=== PATIENT | female | born 1945 | race Caucasian/White ===

== ENCOUNTER → 2018-05-03 12:59 | Outpatient (CLI) | payer OTHER, SELFPAY ==
[2018-05-03 13:17] LABS: Add Manual Diff / Slide Review NO; Eosinophils Percent Auto 1.9 % (2-4); Hematocrit 42.5 % (36-46); Hemoglobin 14.1 g/dL (12.0-16.0); Lymphocytes Percent Auto 19.4 % (25-40); Mean Corpuscular HGB Conc 33.2 % (30-36); Mean Corpuscular Hemoglobin 30.9 PG (26-34); Mean Corpuscular Volume 93.1 fL (80-100); Monocytes Percent Auto 9.1 % (3-14); Neutrophils Absolute Auto 4100 /uL (3000-5900); Neutrophils Percent Auto 68.6 % (50-75); Platelet Count 97 X10^3/uL (150-400); Red Blood Cell Count 4.57 X10^6/uL (4.0-5.2)
[2018-05-03 13:25] LABS: Alanine Aminotransferase 26 IU/L (9-52); Albumin Globulin Ratio 1.4 (1.0-2.8); Alkaline Phosphatase 73 U/L (38-126); Aspartate Aminotransferase 22 IU/L (14-36); Blood Urea Nitrogen 15 mg/dL (7-17); Calcium 9.8 mg/dL (8.4-10.2); Carbon Dioxide 28 mmol/L (22-32); Chloride 103 mmol/L (98-107); Estimated Glomerular Filt Rate > 60.0 mL/min (>60); Globulin 2.9 g/dL (1.7-4.1); Glucose 114 mg/dL (80-110); HEMOLYSIS < 15 (0-50); Sodium 140 mmol/L (137-145); Total Protein 6.9 g/dL (6.3-8.2)
--- NOTE | 2018-05-03 14:14 | PC.NURSE ---
labs stable, appt on 05/10 with PRINCIPAL RESEARCH ECONOMIST
== END ==
PROVIDERS: Family Provider Family Medicine; PCP Family Medicine; Visit Provider Internal Medicine Hematology & Oncology
DX: D69.3 Immune thrombocytopenic purpura (principal)
CPT/HCPCS: 36415; 80053; 85025

== ENCOUNTER → 2018-05-17 12:50 | Outpatient (CLI) | payer OTHER, SELFPAY | PROVIDERS: PCP Family Medicine; Visit Provider Nurse Practitioner Gerontology | DX: C50.911 Malignant neoplasm of unspecified site of right female breast (principal); M85.852 Other specified disorders of bone density and structure, left thigh; Z78.0 Asymptomatic menopausal state; E07.9 Disorder of thyroid, unspecified | CPT/HCPCS: 77080 ==

== ENCOUNTER 2018-05-19 11:30 | Oncology outpatient (ONC) | payer OTHER, SELFPAY ==
--- NOTE | 2018-05-12 11:04 | ONC.APRN.PN ---
PN -Subjective Interval history: The patient is a 72 year old Female who is being seen in the clinic 05/12/2018. 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 Barbour in [place], [place]. Patient presents today for a 6 month interval follow-up. Clinically she is done well since I saw her last. No illnesses, infections, hospital stays. No unexplained bleeding or bruising. Over well reports she is doing ?great?. She traveled quite a bit earlier in the year. She has a trip to visit family in [place] spring 2018. Activity tolerance is stable. Appetite is stable as well, weight is stable. No new pain. No new lumps or bumps. Continuation continues to have chronic lower back pain which is being managed through physical therapy. MRI of the lumbar spine on December [address] Macario showing diffuse degenerative changes no evidence of malignancy. The patient is scheduled for her annual bilateral screening mammogram tomorrow October 10. Patient also recently received notice in the mail she is due for her colonoscopy, she reports she is going to schedule. She states her most recent bone density screen was ?a long time ago?. She does not routinely take calcium and vitamin-D. Past Medical History The patient's past medical history is significant for: 1) neutropenia and thrombocytopenia, secondary: Laboratory review: Thrombocytopenia, Chronic. Documented blood work from 06/26/2011, , 07/08/2012, 12/06/2012, and reporting a platelet count of 94, 70, 94, and 95, respectively. More recently platelet count dated 07/25/2015, 07/21/2016, and 08/20/2016 reporting platelet counts of 72, 83, and 76* Neutropenia, Chronic. Laboratory data from 07/25/2015, 07/21/2016, and 08/20/2016 reporting an absolute neutrophil count of 2900, 3120, 2400 respectively. Patient has had 2 episodes of neutropenia documented on 11/01/2014 on 06/26/2011 with ANC measured at 2920 594 respectively. ANC is otherwise been in the 3000 4000 range. Evaluation for primary causes: 11/10/2016. Bone marrow biopsy with aspirate. Pathology reporting normal trilineage hematopoiesis with a cellularity normal for age of 40%. No evidence of involvement of a myeloid stem cell neoplasm, lymphoproliferative disorder, or plasma cell neoplasm. No significant marrow reticulin fibrosis. Flow cytometry from the aspirate without evidence of a blast her myeloid cell population. No abnormal B, T or plasma cell population. MDS FISH panel negative. Cytogenetics reporting a normal 46 XX chromosome panel 09/15/2016. Peripheral flow cytometry on without evidence of abnormal B or T-cell population. No evidence of blasts or myelocytes cell population. 09/15/2016. Ultrasound of the abdomen on reporting a spleen in the normal range of 11.1 cm. 09/08/2016. Peripheral blood work for a B12, serum folate, TSH, ESR, CRP all of the normal range. 2) osteoporosis: Bone density scan from 02/16/2013 reporting a T score of the L-spine at -2.7. T score of the left and right neck of the femur of -2.7 of -1.5 respectively. 3) depression currently on Lexapro. 4) hypertension. 5) Right breast cancer. Node positive. Patient is status post partial mastectomy, adjuvant chemotherapy for approximately 6 cycles, patient cannot recall exact regimen. Radiation therapy. Oncologist was Dr. Fazal Barbour. 6) hypothyroidism. Home Medications and Allergies Home Medications Medication Instructions Recorded Confirmed Type [METABO 379] #0 07/21/16 History [PRO X10] #0 07/21/16 History naproxen 500 mg OR BIDP PRN #60 tab 07/21/16 Rx levothyroxine [Synthroid] 0.075 mg PO QAM #90 tab 09/01/16 Rx lorazepam 0.5 mg PO Q6HP PRN #10 tab 10/20/16 Rx [CRAVEFIX-96] #0 12/22/16 History levothyroxine [Synthroid] 0.075 mg PO QAM #90 tab 10/27/17 Rx omeprazole 20 mg PO EVERY OTHER DAY #45 tab 10/27/17 Rx escitalopram 10 mg tablet 10 mg PO QDAY #90 tab 01/17/18 Rx lisinopril 5 mg tablet 5 mg PO QDAY #90 tab 01/17/18 Rx simvastatin 20 mg tablet 20 mg PO HS #90 tab 01/17/18 Rx Allergies Allergy/AdvReac Type Severity Reaction Status Date / Time Penicillins [PENICILLINS] Allergy Intermediate RASH Unverified 10/27/17 12:13 Exam - Constitutional positive no acute distress - Routine HEENT Exam Eye: Present: conjunctivae pink. Absent: conjunctival icterus, scleral injection ENT: Present: mucous membranes moist, oropharynx clear - Routine Neck Exam Present: supple. Absent: lymphadenopathy - Routine Chest/Breast/Axilla Exam Chest wall exam standard: Absent: tenderness, mass Breast: Absent: tenderness, mass, erythema Axillae: Absent: lymphadenopathy, mass - Routine Respiratory Exam Present: Clear to auscultation bilaterally. Absent: rales, rhonchi, wheezes - Routine Cardiovascular Exam Present: RRR, S1, S2. Absent: murmur, gallop, rubs, JVD - Routine Abdominal Exam Present: soft, normoactive bowel sounds. Absent: tenderness, distended, organomegaly, mass - Routine Extremities Exam Absent: edema, calf tenderness - Routine Skin Exam Present: intact. Absent: petechiae, rash - Routine Neurological Exam Present: alert, oriented X3 - Routine Psychiatric Exam Present: normal affect Assessment and Plan (1) Immune thrombocytopenia Current visit: Yes Status: Acute Stable. Platelets remain a bit low at 97,000 seven thousand however are actually improved from previous. November 05, 2007 90,000, May 04, 2017 64,000. No unexplained bleeding or bruising. RTC 6 months cbc cmp (2) Immune neutropenia Current visit: Yes Status: Acute Stable. White count is normal today at 6.0 with neutrophils also normal at 3300. Patient has not had any recent illnesses or infections. RTC 6 months cbc cmp (3) Breast cancer, right breast Current visit: Yes Status: Acute No clinical signs or symptoms to suggest disease recurrence. Patient is scheduled for routine annual bilateral mammographies screen tomorrow May 13. (4) Osteoporosis Current visit: Yes Status: Acute Patient has not had a bone density screen since 2012 at which time she already had osteoporosis. She does not routinely take calcium or vitamin-D. I reviewed daily recommendations for 1200 calcium 800 vitamin-D strongly encouraged the patient to take daily. I have ordered a bone density screen, patient will return to review results with me patient is aware we will also be discussing treatment options.
--- NOTE | 2018-05-12 11:10 | P.PNONC_ITS ---
PN -Subjective Interval history: The patient is a 72 year old Female who is being seen in the clinic 05/12/2018. 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 Barbour in [place], [place]. Patient presents today for a 6 month interval follow-up. Clinically she is done well since I saw her last. No illnesses, infections, hospital stays. No unexplained bleeding or bruising. Over well reports she is doing ?great?. She traveled quite a bit earlier in the year. She has a trip to visit family in [place] spring 2018. Activity tolerance is stable. Appetite is stable as well, weight is stable. No new pain. No new lumps or bumps. Continuation continues to have chronic lower back pain which is being managed through physical therapy. MRI of the lumbar spine on December [address] Macario showing diffuse degenerative changes no evidence of malignancy. The patient is scheduled for her annual bilateral screening mammogram tomorrow October 10. Patient also recently received notice in the mail she is due for her colonoscopy, she reports she is going to schedule. She states her most recent bone density screen was ?a long time ago?. She does not routinely take calcium and vitamin-D. Past Medical History The patient's past medical history is significant for: 1) neutropenia and thrombocytopenia, secondary: Laboratory review: Thrombocytopenia, Chronic. Documented blood work from 06/26/2011, , 2011, 12/06/2012, and reporting a platelet count of 94 , 70, 94, and 95, respectively. More recently platelet count dated 2015, 07/21/2016, and 08/20/2016 reporting platelet counts of 72, 83, and 76* Neutropenia, Chronic. Laboratory data from 07/25/2015, 07/21/2016, and 08/20 reporting an absolute neutrophil count of 2900, 3120, 2400 respectively. Patient has had 2 episodes of neutropenia documented on 11/01/2014 on 06/26/2011 with ANC measured at 2920 594 respectively. ANC is otherwise been in the 3000 4000 range. Evaluation for primary causes: 11/10/2016. Bone marrow biopsy with aspirate. Pathology reporting normal trilineage hematopoiesis with a cellularity normal for age of 40%. No evidence of involvement of a myeloid stem cell neoplasm, lymphoproliferative disorder, or plasma cell neoplasm. No significant marrow reticulin fibrosis. Flow cytometry from the aspirate without evidence of a blast her myeloid cell population. No abnormal B, T or plasma cell population. MDS FISH panel negative. Cytogenetics reporting a normal 46 XX chromosome panel 09/15/2016. Peripheral flow cytometry on without evidence of abnormal B or T- cell population. No evidence of blasts or myelocytes cell population. 09/15/2016. Ultrasound of the abdomen on reporting a spleen in the normal range of 11.1 cm. 09/08/2016. Peripheral blood work for a B12, serum folate, TSH, ESR, CRP all of the normal range. 2) osteoporosis: Bone density scan from 02/16/2013 reporting a T score of the L -spine at -2.7. T score of the left and right neck of the femur of -2.7 of - 1.5 respectively. 3) depression currently on Lexapro. 4) hypertension. 5) Right breast cancer. Node positive. Patient is status post partial mastectomy, adjuvant chemotherapy for approximately 6 cycles, patient cannot recall exact regimen. Radiation therapy. Oncologist was Dr. Fazal Barbour. 6) hypothyroidism. Home Medications and Allergies Home Medications Medication Instructions Recorded Confirmed Type [METABO 379] #0 07/21/16 History [PRO X10] #0 07/21/16 History naproxen 500 mg OR BIDP PRN #60 tab 07/21/16 Rx levothyroxine [Synthroid] 0.075 mg PO QAM #90 tab 09/01/16 Rx lorazepam 0.5 mg PO Q6HP PRN #10 tab 10/20/16 Rx [CRAVEFIX-96] #0 12/22/16 History levothyroxine [Synthroid] 0.075 mg PO QAM #90 tab 10/27/17 Rx omeprazole 20 mg PO EVERY OTHER DAY #45 tab 10/27/17 Rx escitalopram 10 mg tablet 10 mg PO QDAY #90 tab 01/17/18 Rx lisinopril 5 mg tablet 5 mg PO QDAY #90 tab 01/17/18 Rx simvastatin 20 mg tablet 20 mg PO HS #90 tab 01/17/18 Rx Allergies Allergy/AdvReac Type Severity Reaction Status Date / Time Penicillins [PENICILLINS] Allergy Intermediate RASH Unverified 10/27/17 12:13 Exam - Constitutional positive no acute distress - Routine HEENT Exam Eye: Present: conjunctivae pink. Absent: conjunctival icterus, scleral injection ENT: Present: mucous membranes moist, oropharynx clear - Routine Neck Exam Present: supple. Absent: lymphadenopathy - Routine Chest/Breast/Axilla Exam Chest wall exam standard: Absent: tenderness, mass Breast: Absent: tenderness, mass, erythema Axillae: Absent: lymphadenopathy, mass - Routine Respiratory Exam Present: Clear to auscultation bilaterally. Absent: rales, rhonchi, wheezes - Routine Cardiovascular Exam Present: RRR, S1, S2. Absent: murmur, gallop, rubs, JVD - Routine Abdominal Exam Present: soft, normoactive bowel sounds. Absent: tenderness, distended, organomegaly, mass - Routine Extremities Exam Absent: edema, calf tenderness - Routine Skin Exam Present: intact. Absent: petechiae, rash - Routine Neurological Exam Present: alert, oriented X3 - Routine Psychiatric Exam Present: normal affect Assessment and Plan (1) Immune thrombocytopenia Current visit: Yes Status: Acute Stable. Platelets remain a bit low at 97,000 seven thousand however are actually improved from previous. November 05, 2007 90,000, May 04, 2017 64,000. No unexplained bleeding or bruising. RTC 6 months cbc cmp (2) Immune neutropenia Current visit: Yes Status: Acute Stable. White count is normal today at 6.0 with neutrophils also normal at 3300. Patient has not had any recent illnesses or infections. RTC 6 months cbc cmp (3) Breast cancer, right breast Current visit: Yes Status: Acute No clinical signs or symptoms to suggest disease recurrence. Patient is scheduled for routine annual bilateral mammographies screen tomorrow May 13. (4) Osteoporosis Current visit: Yes Status: Acute Patient has not had a bone density screen since 2012 at which time she already had osteoporosis. She does not routinely take calcium or vitamin-D. I reviewed daily recommendations for 1200 calcium 800 vitamin-D strongly encouraged the patient to take daily. I have ordered a bone density screen, patient will return to review results with me patient is aware we will also be discussing treatment options.
[2018-05-12 11:13] VITALS: BP 129/85; PULSE 80; RESP 18; TEMP 36.4; O2SAT 97
[2018-05-19 11:42] VITALS: BP 137/82; PULSE 70; RESP 18; TEMP 36.2; O2SAT 97
--- NOTE | 2018-05-19 12:25 | ONC.APRN.PN ---
PN -Subjective Interval history: The patient is a 72 year old Female who is being seen in the clinic 05/19/2018. 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 Barbour in [place], [place]. Patient presents today to review results of her bone density screen. During my previous visit with the patient May 12, 2018 it was noted she had not had bone density screen since February of 2013 at which time she was osteoporotic with AP spine T-score -2.7 also left neck of femur T-score -2.7. Patient is , fair skin, light eyes, light hair. Also with thyroid disease, history of cancer, treatment for cancer she has multiple risk factors for osteoporosis. She has not had any fractures ever. Patient underwent bone density screen April 30, 2018 quite surprisingly her T-scores have improved. Specifically AP spine is now T-score -2.0 and left neck femur-2.1. She is now osteopenic rather than osteoporotic. These results were reviewed with the patient. She still has the above risk factors recommendation would be to initiate treatment and repeat bone density scan in 1-2 years. The patient states she does take calcium and vitamin D. Past Medical History The patient's past medical history is significant for: 1) neutropenia and thrombocytopenia, secondary: Laboratory review: Thrombocytopenia, Chronic. Documented blood work from 06/26/2011, , 07/08/2012, 12/06/2012, and reporting a platelet count of 94, 70, 94, and 95, respectively. More recently platelet count dated 07/25/2015, 07/21/2016, and 08/20/2016 reporting platelet counts of 72, 83, and 76* Neutropenia, Chronic. Laboratory data from 07/25/2015, 07/21/2016, and 08/20/2016 reporting an absolute neutrophil count of 2900, 3120, 2400 respectively. Patient has had 2 episodes of neutropenia documented on 11/01/2014 on 06/26/2011 with ANC measured at 2920 594 respectively. ANC is otherwise been in the 3000 4000 range. Evaluation for primary causes: 11/10/2016. Bone marrow biopsy with aspirate. Pathology reporting normal trilineage hematopoiesis with a cellularity normal for age of 40%. No evidence of involvement of a myeloid stem cell neoplasm, lymphoproliferative disorder, or plasma cell neoplasm. No significant marrow reticulin fibrosis. Flow cytometry from the aspirate without evidence of a blast her myeloid cell population. No abnormal B, T or plasma cell population. MDS FISH panel negative. Cytogenetics reporting a normal 46 XX chromosome panel 09/15/2016. Peripheral flow cytometry on without evidence of abnormal B or T-cell population. No evidence of blasts or myelocytes cell population. 09/15/2016. Ultrasound of the abdomen on reporting a spleen in the normal range of 11.1 cm. 09/08/2016. Peripheral blood work for a B12, serum folate, TSH, ESR, CRP all of the normal range. 2) osteoporosis: Bone density scan from 02/16/2013 reporting a T score of the L-spine at -2.7. T score of the left and right neck of the femur of -2.7 of -1.5 respectively. 3) depression currently on Lexapro. 4) hypertension. 5) Right breast cancer. Node positive. Patient is status post partial mastectomy, adjuvant chemotherapy for approximately 6 cycles, patient cannot recall exact regimen. Radiation therapy. Oncologist was Dr. Fazal Barbour. 6) hypothyroidism. Home Medications and Allergies Home Medications Medication Instructions Recorded Confirmed Type [METABO 379] #0 07/21/16 History [PRO X10] #0 07/21/16 History naproxen 500 mg OR BIDP PRN #60 tab 07/21/16 Rx levothyroxine [Synthroid] 0.075 mg PO QAM #90 tab 09/01/16 Rx lorazepam 0.5 mg PO Q6HP PRN #10 tab 10/20/16 Rx [CRAVEFIX-96] #0 12/22/16 History levothyroxine [Synthroid] 0.075 mg PO QAM #90 tab 10/27/17 Rx omeprazole 20 mg PO EVERY OTHER DAY #45 tab 10/27/17 Rx escitalopram 10 mg tablet 10 mg PO QDAY #90 tab 01/17/18 Rx lisinopril 5 mg tablet 5 mg PO QDAY #90 tab 01/17/18 Rx simvastatin 20 mg tablet 20 mg PO HS #90 tab 01/17/18 Rx alendronate [Fosamax] 70 mg PO QWEEK #14 tab 05/19/18 Rx Allergies Allergy/AdvReac Type Severity Reaction Status Date / Time Penicillins [PENICILLINS] Allergy Intermediate RASH Unverified 10/27/17 12:13 Exam Narrative: consult only today no exam - Constitutional positive no acute distress, positive average body habitus - Routine HEENT Exam Head: Present: normocephalic, atraumatic Eye: Absent: conjunctival icterus, scleral injection - Routine Respiratory Exam Absent: respiratory distress Assessment and Plan (1) Immune thrombocytopenia Current visit: Yes Status: Acute Stable. Platelets remain a bit low at 97,000 seven thousand however are actually improved from previous. November 05, 2007 90,000, May 04, 2017 64,000. No unexplained bleeding or bruising. RTC 6 months cbc cmp (2) Immune neutropenia Current visit: Yes Status: Acute Stable. White count is normal today at 6.0 with neutrophils also normal at 3300. Patient has not had any recent illnesses or infections. RTC 6 months cbc cmp (3) Breast cancer, right breast Current visit: Yes Status: Acute No clinical signs or symptoms to suggest disease recurrence. Patient is scheduled for routine annual bilateral mammographies screen tomorrow May 13. (4) Osteoporosis Current visit: Yes Status: Acute Bone density screen May 17, 2018 reviewed in detail with the patient today. Surprisingly her numbers have improved since her previous bone density screen which was February of 2013 when patient was clearly osteoporotic. Patient is now osteopenia with T-scores -2.0 AP spine of -2.1 femur neck, left. Patient has multiple risk factors for bone loss including thyroid disease, cancer, treatment for cancer, , fair skin. She does not have a history of fractures. She does take calcium and vitamin-D. After discussing with the patient plan is to move forward with treatment in the form of Fosamax 70 mg every week. Patient does have occasional ?heartburn? for which she will occasionally take omeprazole. She does not take this medicine every day. She understands she is not to take omeprazole and Fosamax on the same day. She also understands she is to take Fosamax once a week in the morning, with a full glass of water and remained upright for 30 min. I provided the patient with a handout detailing mechanism of action also possible side effects of Fosamax. This handout also details how to appropriately take the medication. Patient is to return in 6 months time for routine provider visit, CBC, CMP.
--- NOTE | 2018-05-19 12:32 | P.PNONC_ITS ---
PN -Subjective Interval history: The patient is a 72 year old Female who is being seen in the clinic 05/19/2018. 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 Barbour in [place], [place]. Patient presents today to review results of her bone density screen. During my previous visit with the patient May 12, 2018 it was noted she had not had bone density screen since February of 2013 at which time she was osteoporotic with AP spine T-score -2.7 also left neck of femur T-score -2.7. Patient is , fair skin, light eyes, light hair. Also with thyroid disease, history of cancer, treatment for cancer she has multiple risk factors for osteoporosis. She has not had any fractures ever. Patient underwent bone density screen April 30, 2018 quite surprisingly her T- scores have improved. Specifically AP spine is now T-score -2.0 and left neck femur-2.1. She is now osteopenic rather than osteoporotic. These results were reviewed with the patient. She still has the above risk factors recommendation would be to initiate treatment and repeat bone density scan in 1-2 years. The patient states she does take calcium and vitamin D. Past Medical History The patient's past medical history is significant for: 1) neutropenia and thrombocytopenia, secondary: Laboratory review: Thrombocytopenia, Chronic. Documented blood work from 06/26/2011, , 2011, 12/06/2012, and reporting a platelet count of 94 , 70, 94, and 95, respectively. More recently platelet count dated 2015, 07/21/2016, and 08/20/2016 reporting platelet counts of 72, 83, and 76* Neutropenia, Chronic. Laboratory data from 07/25/2015, 07/21/2016, and 08/20 reporting an absolute neutrophil count of 2900, 3120, 2400 respectively. Patient has had 2 episodes of neutropenia documented on 11/01/2014 on 06/26/2011 with ANC measured at 2920 594 respectively. ANC is otherwise been in the 3000 4000 range. Evaluation for primary causes: 11/10/2016. Bone marrow biopsy with aspirate. Pathology reporting normal trilineage hematopoiesis with a cellularity normal for age of 40%. No evidence of involvement of a myeloid stem cell neoplasm, lymphoproliferative disorder, or plasma cell neoplasm. No significant marrow reticulin fibrosis. Flow cytometry from the aspirate without evidence of a blast her myeloid cell population. No abnormal B, T or plasma cell population. MDS FISH panel negative. Cytogenetics reporting a normal 46 XX chromosome panel 09/15/2016. Peripheral flow cytometry on without evidence of abnormal B or T- cell population. No evidence of blasts or myelocytes cell population. 09/15/2016. Ultrasound of the abdomen on reporting a spleen in the normal range of 11.1 cm. 09/08/2016. Peripheral blood work for a B12, serum folate, TSH, ESR, CRP all of the normal range. 2) osteoporosis: Bone density scan from 02/16/2013 reporting a T score of the L -spine at -2.7. T score of the left and right neck of the femur of -2.7 of - 1.5 respectively. 3) depression currently on Lexapro. 4) hypertension. 5) Right breast cancer. Node positive. Patient is status post partial mastectomy, adjuvant chemotherapy for approximately 6 cycles, patient cannot recall exact regimen. Radiation therapy. Oncologist was Dr. Fazal Barbour. 6) hypothyroidism. Home Medications and Allergies Home Medications Medication Instructions Recorded Confirmed Type [METABO 379] #0 07/21/16 History [PRO X10] #0 07/21/16 History naproxen 500 mg OR BIDP PRN #60 tab 07/21/16 Rx levothyroxine [Synthroid] 0.075 mg PO QAM #90 tab 09/01/16 Rx lorazepam 0.5 mg PO Q6HP PRN #10 tab 10/20/16 Rx [CRAVEFIX-96] #0 12/22/16 History levothyroxine [Synthroid] 0.075 mg PO QAM #90 tab 10/27/17 Rx omeprazole 20 mg PO EVERY OTHER DAY #45 tab 10/27/17 Rx escitalopram 10 mg tablet 10 mg PO QDAY #90 tab 01/17/18 Rx lisinopril 5 mg tablet 5 mg PO QDAY #90 tab 01/17/18 Rx simvastatin 20 mg tablet 20 mg PO HS #90 tab 01/17/18 Rx alendronate [Fosamax] 70 mg PO QWEEK #14 tab 05/19/18 Rx Allergies Allergy/AdvReac Type Severity Reaction Status Date / Time Penicillins [PENICILLINS] Allergy Intermediate RASH Unverified 10/27/17 12:13 Exam Narrative: consult only today no exam - Constitutional positive no acute distress, positive average body habitus - Routine HEENT Exam Head: Present: normocephalic, atraumatic Eye: Absent: conjunctival icterus, scleral injection - Routine Respiratory Exam Absent: respiratory distress Assessment and Plan (1) Immune thrombocytopenia Current visit: Yes Status: Acute Stable. Platelets remain a bit low at 97,000 seven thousand however are actually improved from previous. November 05, 2007 90,000, May 04, 2017 64,000. No unexplained bleeding or bruising. RTC 6 months cbc cmp (2) Immune neutropenia Current visit: Yes Status: Acute Stable. White count is normal today at 6.0 with neutrophils also normal at 3300. Patient has not had any recent illnesses or infections. RTC 6 months cbc cmp (3) Breast cancer, right breast Current visit: Yes Status: Acute No clinical signs or symptoms to suggest disease recurrence. Patient is scheduled for routine annual bilateral mammographies screen tomorrow May 13. (4) Osteoporosis Current visit: Yes Status: Acute Bone density screen May 17, 2018 reviewed in detail with the patient today. Surprisingly her numbers have improved since her previous bone density screen which was February of 2013 when patient was clearly osteoporotic. Patient is now osteopenia with T-scores -2.0 AP spine of -2.1 femur neck, left. Patient has multiple risk factors for bone loss including thyroid disease, cancer, treatment for cancer, , fair skin. She does not have a history of fractures. She does take calcium and vitamin-D. After discussing with the patient plan is to move forward with treatment in the form of Fosamax 70 mg every week. Patient does have occasional ?heartburn? for which she will occasionally take omeprazole. She does not take this medicine every day. She understands she is not to take omeprazole and Fosamax on the same day. She also understands she is to take Fosamax once a week in the morning, with a full glass of water and remained upright for 30 min. I provided the patient with a handout detailing mechanism of action also possible side effects of Fosamax. This handout also details how to appropriately take the medication. Patient is to return in 6 months time for routine provider visit, CBC, CMP.
== END 2018-05-26 13:20 ==
PROVIDERS: Family Provider Family Medicine; PCP Family Medicine; Visit Provider Nurse Practitioner Gerontology
DX: D70.4 Cyclic neutropenia (principal); D69.59 Other secondary thrombocytopenia; C50.911 Malignant neoplasm of unspecified site of right female breast
CPT/HCPCS: 99214

== ENCOUNTER → 2018-07-14 10:45 | Outpatient (CLI) | payer OTHER, SELFPAY ==
--- NOTE | 2018-07-14 | DI.MG.S_ITS ---
BILATERAL DIGITAL SCREENING MAMMOGRAM 3D/2D WITH CAD POST LUMPECTOMY: 07/14/2018 CLINICAL: Routine screening. Personal history of breast cancer. Family history of breast cancer. Comparison is made to exams dated: 05/22/2016 mammogram - [facility], 04/23/2014 mammogram, and 02/06/2013 mammogram - [facility]. There are scattered fibroglandular elements in both breasts. Current study was also evaluated with a Computer Aided Detection (CAD) system. There are benign post operative findings in the right breast. No significant masses, calcifications, or other findings are seen in either breast. There has been no significant interval change. IMPRESSION: There is no mammographic evidence of malignancy. A 1 year screening mammogram is recommended. This exam was interpreted at Station ID: [id number]. NOTE: For mammograms, a report in lay terms will be sent to the patient. Approximately 15% of breast malignancies will not be visualized mammographically. In the management of a palpable breast mass, a negative mammogram must not discourage biopsy of a clinically suspicious lesion. Electronically Signed By: Nato judd/lorenzo:07/14/2018 18:41:13 letter sent: Normal Exam ACR BI-RADS Category 2: Benign Finding(s) 3342F
== END ==
PROVIDERS: PCP Student in an Organized Health Care Education/Training Program; Visit Provider Student in an Organized Health Care Education/Training Program
DX: Z12.31 Encounter for screening mammogram for malignant neoplasm of breast (principal)
CPT/HCPCS: 77063; 77067

== ENCOUNTER → 2018-11-29 12:30 | Oncology outpatient (ONC) | payer OTHER, SELFPAY ==
[2018-11-29 12:38] LABS: Hematocrit 42.4 % (36-46); Mean Corpuscular HGB Conc 32.9 % (30-36); Mean Corpuscular Hemoglobin 30.5 PG (26-34); Mean Corpuscular Volume 92.7 fL (80-100); Red Blood Cell Count 4.58 X10^6/uL (4.0-5.2); White Blood Cell Count 4.5 X10^3/uL (4.5-11.0)
[2018-11-29 13:04] LABS: Neutrophils Absolute Manual 2745 /uL (3000-5900); Total Cells Counted 100
[2018-11-29 13:05] LABS: RBC Morphology Normal Morphology
[2018-11-29 13:06] LABS: Platelet Count 80 X10^3/uL (150-400)
[2018-11-29 13:12] VITALS: BP 131/74; PULSE 68; RESP 18; TEMP 36.6; O2SAT 98
--- NOTE | 2018-11-29 13:25 | ONC.PN ---
PN -Subjective Interval history: Diagnosis: Thrombocytopenia and neutropenia without obvious etiology Interval history: The patient is a 73-year-old woman who returns today for follow-up. She has had a longstanding history of mild neutropenia and thrombocytopenia but without any symptoms related to these. Since her last visit here, she denies any unusual bleeding or bruising. No fevers chills or sweats. She has not had any recent infections. Appetite and energy level have been stable. No shortness of breath or cough. No GI complaints. She does have a history of chronic back pain that is been present for about 30 years. Over the last 6 weeks, she has noted some pain that starts in the right flank area in hip and radiates down the back of her leg to her feet. She describes it as a tingly sensation. It is exacerbated when she lies flat on her back and relieved by lying on her side. She is not bothered by the pain when she is up and moving around. She denies any history of trauma. She is not aware of any other inciting factors. She believes that this may be related to her Fosamax. Her past medical history is notable for a distant history of breast cancer. She has prior chemotherapy. She also has a history of osteoporosis. - Patient Self-Reported Symptoms SR Gastrointestinal issues: Abdominal pain, Heartburn SR Musculoskeletal issues: Joint pain or swelling, Muscle weakness Home Medications and Allergies Home Medications Medication Instructions Recorded Confirmed Type [METABO 379] #0 07/21/16 06/21/18 History [PRO X10] #0 07/21/16 06/21/18 History naproxen 500 mg OR BIDP PRN #60 tab 07/21/16 06/21/18 Rx [CRAVEFIX-96] #0 12/22/16 06/21/18 History alendronate [Fosamax] 70 mg PO QWEEK #14 tab 05/19/18 11/29/18 Rx omeprazole 20 mg capsule,delayed 20 mg PO EVERY OTHER DAY #45 tab 06/21/18 Rx release escitalopram 10 mg tablet 10 mg PO QDAY #90 tab 08/29/18 Rx lisinopril 5 mg tablet 5 mg PO QDAY #90 tab 08/29/18 Rx simvastatin 20 mg tablet 20 mg PO HS #90 tab 08/29/18 Rx levothyroxine 75 mcg tablet 75 mcg PO QAM #90 tab 11/03/18 Rx Allergies Allergy/AdvReac Type Severity Reaction Status Date / Time Penicillins [PENICILLINS] Allergy Intermediate RASH Verified 06/21/18 11:33 Exam Vital signs: Vital Signs Temp Pulse Resp BP Pulse Ox 11/29/18 13:12 97.8 F 68 18 131/74 98 Intake and Output 11/28/18 11/29/18 11/29/18 23:59 07:59 15:59 Other: Weight 77.2 kg Patient Weight 11/29/18 23:59 Weight 77.2 kg - Constitutional positive no acute distress, positive average body habitus - Routine HEENT Exam Head: Present: normocephalic, atraumatic Eye: Present: EOMI, PERRL. Absent: conjunctival icterus, scleral injection ENT: Present: mucous membranes moist, oropharynx clear - Routine Neck Exam Present: supple. Absent: lymphadenopathy, thyromegaly - Routine Respiratory Exam Present: Clear to auscultation bilaterally. Absent: rales, wheezes - Routine Cardiovascular Exam Present: RRR, S1, S2. Absent: murmur - Routine Abdominal Exam Present: soft, normoactive bowel sounds. Absent: tenderness, organomegaly, mass - Routine Extremities Exam Absent: cyanosis, clubbing, edema - Routine Back/Spine Exam Back/Spine: Absent: paraspinal tenderness, vertebral tenderness - Routine Skin Exam Present: intact. Absent: petechiae, wounds - Routine Neurological Exam Present: alert, oriented X3 - Routine Psychiatric Exam Present: normal affect, normal thought process Results - Labs Laboratory Last Values WBC 4.5 X10^3/uL (4.5-11.0) 11/29/18 13:00 RBC 4.58 X10^6/uL (4.0-5.2) 11/29/18 13:00 Hgb 14.0 g/dL (12.0-16.0) 11/29/18 13:00 Hct 42.4 % (36-46) 11/29/18 13:00 MCV 92.7 fL (80-100) 11/29/18 13:00 MCH 30.5 PG (26-34) 11/29/18 13:00 MCHC 32.9 % (30-36) 11/29/18 13:00 RDW 14.0 % (11.6-14.8) 11/29/18 13:00 Plt Count 80 X10^3/uL (150-400) L 11/29/18 13:00 Total Counted 100 11/29/18 13:00 Seg Neutrophils % 60.0 % (38-70) 11/29/18 13:00 Band Neutrophils % 1.0 % (3-7) L 11/29/18 13:00 Lymphocytes % (Manual) 26.0 % (25-45) 11/29/18 13:00 Atypical Lymphs % 3.0 % (-0) H 11/29/18 13:00 Monocytes % (Manual) 9.0 % (2-11) 11/29/18 13:00 Basophils % (Manual) 1.0 % (0-1) 11/29/18 13:00 Neutrophils # (Manual) 2745 /uL (0925-4031) L 11/29/18 13:00 RBC Morphology Normal morphology 11/29/18 13:00 Assessment and Plan (1) Immune thrombocytopenia Current visit: No Status: Acute 73-year-old woman with a history of mild neutropenia and thrombocytopenia. She has no symptoms related to either of these. Her counts have been stable. She will return to clinic in about 1 year for follow-up but sooner should the need arise. She does have some hip and leg pain. I doubt that this is related to the Fosamax but it will be easy enough to stop for a few weeks to see if her symptoms improve. It may be worthwhile to consider imaging of the spine or hip.
[2018-11-29 14:00] LABS: Alanine Aminotransferase 23 IU/L (9-52); Albumin 3.9 g/dL (3.5-5.0); Albumin Globulin Ratio 1.3 (1.0-2.8); Alkaline Phosphatase 71 U/L (38-126); Aspartate Aminotransferase 22 IU/L (14-36); BUN Creatinine Ratio 21.7 (6-22); Bilirubin Total 1.4 mg/dL (0.2-1.3); Blood Urea Nitrogen 13 mg/dL (7-17); Calcium 9.8 mg/dL (8.4-10.2); Carbon Dioxide 30 mmol/L (22-32); Chloride 103 mmol/L (98-107); Cholesterol 158 mg/dL (140-199); Estimated Glomerular Filt Rate > 60.0 mL/min (>60); Globulin 2.9 g/dL (1.7-4.1); Glucose 74 mg/dL (80-110); HDL Cholesterol 54 mg/dL (40-60); HEMOLYSIS < 15 (0-50); LDL Cholesterol Calculated 89 mg/dL (<100); Potassium 4.4 mmol/L (3.4-5.1); Sodium 141 mmol/L (137-145); Total Protein 6.8 g/dL (6.3-8.2); Triglycerides 75 mg/dL (35-150)
[2018-11-29 15:38] LABS: Free T4, Direct Thyroxine 1.33 ng/dL (0.78-2.19)
[2018-11-29 15:52] LABS: Thyroid Stimulating Hormone 0.95 uIU/mL (0.47-4.68)
--- NOTE | 2018-11-30 10:22 | ONC.SCHED ---
Called patient to schedule follow up in a year and she wants to call us when it's getting closer
--- NOTE | 2018-12-01 13:16 | ONC.SCHED ---
Latia will call us to make appointment closer to November 2019
--- NOTE | 2019-09-26 16:10 | PC.NURSE ---
Alendronate sodium RX faxed by Rosa Maria gorman
== END ==
LOC: ONC 12:38
PROVIDERS: PCP Student in an Organized Health Care Education/Training Program
DX: D69.6 Thrombocytopenia, unspecified (principal); D70.9 Neutropenia, unspecified; M54.9 Dorsalgia, unspecified; M25.559 Pain in unspecified hip; M79.606 Pain in leg, unspecified; Z85.3 Personal history of malignant neoplasm of breast
CPT/HCPCS: 36415; 80053; 80061; 82306; 84439; 84443; 85025; 99214

== ENCOUNTER → 2019-09-13 10:37 | Outpatient (CLI) | payer OTHER, SELFPAY ==
--- NOTE | 2019-09-13 10:39 | DI.RAD.S_ITS ---
PROCEDURE: XR CHEST 2V INDICATIONS: cough and Hx right breast cancer remission 14 years TECHNIQUE: 2 views of the chest were acquired. COMPARISON: None. FINDINGS: Surgical changes and devices: None. Lungs and pleura: Lungs are clear on the frontal view but there is increased radiodensity on the lateral view overlying the lower thoracic spine. No pleural effusions or pneumothorax. Mediastinum: Mediastinal contours are normal except for what appears to be a possible hiatal hernia behind the heart. Heart size is normal. Bones and chest wall: No suspicious bony abnormalities. Soft tissues appear unremarkable. IMPRESSION: Possible mild pneumonia seen on the lateral view producing increased radiodensity over lower thoracic spine. Alternatively, this might reflect presence of a hiatal hernia in that area. There does appear to be a hiatal hernia superimposed on the lower chest behind the heart on the frontal projection. No definite metastatic disease is found. If CT followup is obtained that would provide the most accurate method for differentiating between hiatal hernia and pneumonia or mass as cause of the increased radiodensity over the lower spine noted above. Dictated by: Adrián Corbin M.D. on 09/13/2019 at 12:18 Approved by: Adrián Corbin M.D. on 09/13/2019 at 12:24
== END ==
PROVIDERS: PCP Nurse Practitioner; Referring Provider Nurse Practitioner
DX: R05 Cough (principal); Z85.3 Personal history of malignant neoplasm of breast
CPT/HCPCS: 71046

== ENCOUNTER → 2020-01-15 12:45 | Outpatient (CLI) | payer OTHER, SELFPAY ==
--- NOTE | 2020-01-15 12:46 | DI.US.S_ITS ---
PROCEDURE: US PERIPH VENOUS LOW EXTREM RT INDICATIONS: SWELLING TECHNIQUE: Real-time imaging, as well as color and pulse Doppler interrogation, were performed of the lower extremity deep veins from the inguinal ligament to the popliteal fossa. COMPARISON: None. FINDINGS: The common femoral, femoral and popliteal veins are normally compressible, and free of intraluminal thrombus. Color and pulse Doppler demonstrate normal phasic intraluminal flow. There is normal augmentation response to distal compression maneuver. IMPRESSION: No evidence of DVT in visualized right lower extremity veins. Dictated by: Miguel Ángel Bender M.D. on 01/15/2020 at 13:24 Approved by: Miguel Ángel Bender M.D. on 01/15/2020 at 13:34
[2020-01-15 14:15] LABS: Add Manual Diff / Slide Review NO; Basophils Absolute Auto 0 /uL (0-100); Basophils Percent Auto 0.8 % (0-2); Eosinophils Absolute Auto 100 /uL (0-450); Eosinophils Percent Auto 1.9 % (2-4); Hematocrit 42.6 % (36-46); Hemoglobin 14.5 g/dL (12.0-16.0); Lymphocytes Absolute Auto 1100 /uL (1100-4500); Lymphocytes Percent Auto 24.1 % (25-40); Mean Corpuscular HGB Conc 34.1 % (30-36); Mean Corpuscular Hemoglobin 31.9 PG (26-34); Mean Corpuscular Volume 93.4 fL (80-100); Monocytes Absolute Auto 400 /uL (0-900); Monocytes Percent Auto 8.8 % (3-14); Neutrophils Absolute Auto 3000 /uL (1500-7000); Neutrophils Percent Auto 64.4 % (50-75); Red Blood Cell Count 4.56 X10^6/uL (4.0-5.2); Red Cell Distribution Width 14.7 % (11.6-14.8); White Blood Cell Count 4.7 X10^3/uL (4.5-11.0)
[2020-01-15 14:39] LABS: Platelet Count 90 X10^3/uL (150-400)
[2020-01-15 15:11] LABS: Thyroid Stimulating Hormone 0.682 uIU/mL (0.47-4.68)
== END ==
PROVIDERS: PCP Nurse Practitioner; Referring Provider Nurse Practitioner; Visit Provider Nurse Practitioner
DX: M79.604 Pain in right leg (principal); R60.0 Localized edema; C50.911 Malignant neoplasm of unspecified site of right female breast; E03.9 Hypothyroidism, unspecified; Z79.899 Other long term (current) drug therapy
CPT/HCPCS: 36415; 84443; 85025; 93971